=== PATIENT | female | born 1950 ===

== ENCOUNTER 2016-08-13 07:32 | Emergency (ER) | payer MEDICAID ==
[2016-08-13 07:33] VITALS: BMI 23.7
[2016-08-13 07:38] VITALS: BP 124/68; PULSE 67; RESP 18; TEMP 98.3; O2SAT 100
--- NOTE | 2016-08-13 08:06 | ED PDOC ---
HPI: General Adult Time Seen by Provider: 08/13/16 07:51 Chief Complaint (Nursing): Lower Extremity Problem/Injury Chief Complaint (Provider): left lower back pain History Per: Patient History/Exam Limitations: no limitations Additional Complaint(s): 65yo female comes to the ED complaining of left buttock pain radiating down left leg for 4 days, worse since last night. pain is intermittent, worse in the evenings. States she is taking Motrin 3x daily. Last motrin was taken 2100 last night. No hematuria, dysuria, nausea, vomit, fever, chills, chest pain. PMD: [facility] Past Medical History Reviewed: Historical Data, Nursing Documentation, Vital Signs Vital Signs: Last Vital Signs Temp 98.3 F 08/13/16 07:37 Pulse 67 08/13/16 07:37 Resp 18 08/13/16 07:37 BP 124/68 08/13/16 07:37 Pulse Ox 100 08/13/16 08:14 - Medical History PMH: Diabetes, HTN, Hypercholesterolemia, Hyperlipidemia Denies: Diverticulitis, Chronic Kidney Disease - Surgical History Surgical History: Appendectomy, Cholecystectomy, Tonsillectomy Other surgeries: tubal ligation - Family History Family History: States: Unknown Family Hx - Social History Drugs: Denies - Immunization History Hx Tetanus Toxoid Vaccination: No Hx Influenza Vaccination: No Hx Pneumococcal Vaccination: No - Home Medications Home Medications: Ambulatory Orders Medication Instructions Recorded Atorvastatin Calcium [Lipitor] 10 mg PO DIN 12/02/13 Glipizide [Glucotrol] 10 mg PO DAILY 12/02/13 MetFORMIN [glucoPHAGE] 1,000 mg PO BID 12/02/13 Quinapril HCl [Quinapril] 20 mg PO DAILY 11/20/15 SITagliptin [Januvia] 100 mg PO DAILY 11/20/15 Cyclobenzaprine [Cyclobenzaprine 10 mg PO TID #21 tab 08/13/16 HCl] Naproxen [Naprosyn] 500 mg PO BID PRN #20 tablet 08/13/16 - Allergies Allergies/Adverse Reactions: Allergies Allergy/AdvReac Type Severity Reaction Status Date / Time No Known Allergies Allergy Verified 08/13/16 07:55 Review of Systems ROS Statement: Except As Marked, All Systems Reviewed And Found Negative Constitutional: Negative for: Fever, Chills Cardiovascular: Negative for: Chest Pain Gastrointestinal: Negative for: Nausea, Vomiting, Abdominal Pain Genitourinary Female: Negative for: Dysuria, Hematuria, Vaginal Bleeding Musculoskeletal: Positive for: Back Pain, Leg Pain Physical Exam - Reviewed Nursing Documentation Reviewed: Yes Vital Signs Reviewed: Yes - Physical Exam Appears: Positive for: Well, Non-toxic, No Acute Distress Head Exam: Positive for: ATRAUMATIC, NORMAL INSPECTION, NORMOCEPHALIC Skin: Positive for: Warm, Dry Eye Exam: Positive for: EOMI, PERRL Respiratory: Negative for: Respiratory Distress Gastrointestinal/Abdominal: Positive for: Soft. Negative for: Tenderness Back: Positive for: Muscle Spasm. Negative for: L CVA Tenderness, R CVA Tenderness, Vertebral Tenderness, Other (negative straight leg raise) Extremity: Positive for: Normal ROM. Negative for: Tenderness, Deformity Neurologic/Psych: Positive for: Alert, Oriented - ECG O2 Sat by Pulse Oximetry: 100 (RA) Pulse Ox Interpretation: Normal Medical Decision Making Medical Decision Makin: patient is feeling better. will d/c on NSAID and Flexeril x-rays show degenerative changes. no obvious fracture. Disposition - Clinical Impression Clinical Impression: Muscle strain, DJD (degenerative joint disease) - Patient ED Disposition Is Patient to be Admitted: No Doctor Will See Patient In The: Office Counseled Patient/Family Regarding: Diagnosis, Need For Followup, Rx Given - Disposition Referrals: [facility] [Outside] [facility] [Outside] Disposition: Routine/Home Disposition Time: 10:52 Condition: IMPROVED Prescriptions: Cyclobenzaprine [Cyclobenzaprine HCl] 10 mg PO TID #21 tab Naproxen [Naprosyn] 500 mg PO BID PRN #20 tablet PRN Reason: Pain, Moderate (4-7) Instructions: Back Exercises (ED), Arthritis (ED) Print Language: NEPALI - POA Present On Arrival: None Additional Comments - Additional Comments Additional Comments: Scribe Attestation: Documented by Morgan Mehta acting as a scribe for Soo Zamudio MD. Provider Scribe Attestation: All medical record entries made by the Scribe were at my direction and personally dictated by me. I have reviewed the chart and agree that the record accurately reflects my personal performance of the history, physical exam, medical decision making, and the department course for this patient. I have also personally directed, reviewed, and agree with the discharge instructions and disposition.
--- NOTE | 2016-08-13 13:32 | RAD ---
Indication: Back pain Left hip radiographs Comparison: None available Findings: Scoliosis convex to the left of the included lower lumbar spine. Extensive degenerative changes of the lower lumbar spine. Joint space narrowing bilateral hip joints. No acute displaced fracture or dislocation identified. Sacroiliac joints appear intact. Soft tissues appear unremarkable. Right upper quadrant surgical clips. Moderate constipation. Impression: No acute displaced fracture or dislocation evident. If high clinical index of suspicion, suggest cross-sectional imaging for further evaluation. Otherwise, if symptoms persist or if there is continued clinical concern, x-ray follow-up in 7-10 days should be considered. Degenerative changes. Scoliosis of the included lower lumbar spine convex to the left. Moderate constipation. Cholecystectomy clips.
--- NOTE | 2016-08-13 13:40 | RAD ---
PROCEDURE: Radiographs of the Lumbar Spine. HISTORY: back pain COMPARISON: Lumbar spine radiographs performed 04/11/15 FINDINGS: Multilevel degenerative changes including extensive osteophyte formation and intervertebral disc space narrowing. Scoliosis with curvature of the lumbar spine convex to the left. No acute displaced fracture identified. Moderate constipation. IMPRESSION: Scoliosis. Extensive multilevel degenerative changes.
== END 2016-08-13 11:36 | disposition home or self-care (01) ==
LOC: H.ER 07:32
DX: M16.0 Bilateral primary osteoarthritis of hip (principal); M47.896 Other spondylosis, lumbar region; T14.8 Other injury of unspecified body region; X58.XXXA Exposure to other specified factors, initial encounter; Y92.9 Unspecified place or not applicable; I10 Essential (primary) hypertension; E11.9 Type 2 diabetes mellitus without complications

== ENCOUNTER 2017-03-31 09:42 | Emergency (ER) | payer MEDICAID ==
[2017-03-31 09:48] VITALS: BP 140/83; PULSE 65; RESP 20; TEMP 97.8; O2SAT 100; BMI 23.0
--- NOTE | 2017-03-31 10:17 | ED PDOC ---
HPI: Abdomen Time Seen by Provider: 03/31/17 10:04 Chief Complaint (Nursing): Abdominal Pain History Per: Patient History/Exam Limitations: no limitations Onset/Duration Of Symptoms: Days (3) Outside of [place] travel?: No Current Symptoms Are (Timing): Still Present Location Of Pain/Discomfort: RUQ Quality Of Discomfort: "Pain" Associated Symptoms: denies: Fever, Nausea, Vomiting, Diarrhea, Loss Of Appetite Exacerbating Factors: Movement Last Bowel Movement: Today Additional Complaint(s): 66 year old female with PMH of HTN, DM and Hyperlipidemia presents to ED with complaints of RUQ abdominal pain for 3 days. She states she thought the pain was muscular and went to see her orthopedic, whom she sees for back pain, and sent her to the ED. She states the pain is dull, non-radiating and worse with movement or on palpation. She has history of cholecystectomy. Denies any fever, nausea, vomiting, diarrhea, constipation, loss of appetite, weight loss, injury. Abnormal Vaginal Bleeding: No Past Medical History Reviewed: Historical Data, Nursing Documentation, Vital Signs Vital Signs: Last Vital Signs Temp 97.8 F 03/31/17 09:47 Pulse 65 03/31/17 09:47 Resp 20 03/31/17 09:47 BP 140/83 03/31/17 09:47 Pulse Ox 100 03/31/17 13:08 - Medical History PMH: Back Problems, Diabetes, HTN, Hypercholesterolemia, Hyperlipidemia - Surgical History Surgical History: Appendectomy, Cholecystectomy, Tonsillectomy Other surgeries: Tubal ligation - Family History Family History: States: Unknown Family Hx - Living Arrangements Living Arrangements: With Family - Social History Alcohol: None Drugs: Denies - Immunization History Hx Tetanus Toxoid Vaccination: No Hx Influenza Vaccination: No Hx Pneumococcal Vaccination: No - Home Medications Home Medications: Ambulatory Orders Medication Instructions Recorded Atorvastatin Calcium [Lipitor] 10 mg PO DIN 12/02/13 Glipizide [Glucotrol] 10 mg PO DAILY 12/02/13 MetFORMIN [glucoPHAGE] 1,000 mg PO BID 12/02/13 Quinapril HCl [Quinapril] 20 mg PO DAILY 11/20/15 SITagliptin [Januvia] 100 mg PO DAILY 11/20/15 Cyclobenzaprine [Cyclobenzaprine 10 mg PO TID #21 tab 08/13/16 HCl] Naproxen [Naprosyn] 500 mg PO BID PRN #20 tablet 08/13/16 Diazepam [Valium] 2 mg PO TID #21 tab 08/15/16 Ibuprofen [Motrin] 1 tab PO TID PRN #30 tab 08/15/16 traMADol/Acetaminophen [Ultracet 1 tab PO Q8 PRN #15 tab 08/15/16 325 MG-37.5 MG] - Allergies Allergies/Adverse Reactions: Allergies Allergy/AdvReac Type Severity Reaction Status Date / Time No Known Allergies Allergy Verified 08/15/16 08:29 Review of Systems Constitutional: Negative for: Fever, Malaise Eyes: Negative for: Vision Change, Redness ENT: Negative for: Ear Pain, Throat Pain Cardiovascular: Negative for: Chest Pain, Palpitations Respiratory: Negative for: Cough, Shortness of Breath Gastrointestinal: Positive for: Abdominal Pain (RUQ). Negative for: Nausea, Vomiting, Diarrhea, Constipation Genitourinary Female: Positive for: Frequency Musculoskeletal: Negative for: Back Pain Skin: Negative for: Rash Neurological: Negative for: Headache, Dizziness Physical Exam - Reviewed Nursing Documentation Reviewed: Yes Vital Signs Reviewed: Yes - Physical Exam Appears: Positive for: Non-toxic, No Acute Distress Head Exam: Positive for: ATRAUMATIC, NORMAL INSPECTION Skin: Positive for: Warm, Dry. Negative for: Rash Eye Exam: Positive for: Normal appearance, EOMI Neck: Positive for: Painless ROM Cardiovascular/Chest: Positive for: Regular Rate, Rhythm, Other (Tenderness to right inferior rib and RUQ). Negative for: Murmur Respiratory: Positive for: Normal Breath Sounds. Negative for: Rales, Rhonchi, Wheezing, Respiratory Distress Gastrointestinal/Abdominal: Positive for: Bowel Sounds (active), Soft, Tenderness (RUQ). Negative for: Mass, Distended, Guarding, Hernia Back: Positive for: Normal Inspection. Negative for: L CVA Tenderness, R CVA Tenderness Extremity: Positive for: Normal ROM. Negative for: Tenderness, Pedal Edema, Deformity, Swelling Neurologic/Psych: Positive for: Alert, Oriented - Laboratory Results Result Diagrams: 03/31/17 11:01 03/31/17 11:01 - ECG O2 Sat by Pulse Oximetry: 100 Medical Decision Making Medical Decision Making: Impression: RUQ abd pain Plan: * Labs * Pepcid * Toradol Progress: 12:00 All labs reviewed with no acute findings [address] IMPRESSION:No acute findings related to/accounting for the clinical presentation. No significant interval change compared to the prior examination(s ). Additional benign and/or incidental findings described above. Re-Eval: 1310 Patient resting comfortably in bed in no acute distress. She reports pain has improved. She has no fever and stable vital signs. Discussed results with patient, and copy of report was provided. Patient feels comfortable going home and will be discharged. Patient given follow up instructions. Instructed to return to ER if symptoms worsen or new symptoms arise. Disposition - Clinical Impression Clinical Impression: RUQ abdominal pain, Fatty infiltration of liver - Patient ED Disposition Is Patient to be Admitted: No Counseled Patient/Family Regarding: Studies Performed, Diagnosis, Need For Followup - Disposition Referrals: [facility] [Outside] [facility] [Outside] Disposition: Routine/Home Disposition Time: 13:12 Condition: IMPROVED Additional Instructions: Kandi anlisis de laboratorio y Ct del abdomen fueron normales. Hgado graso en CT. Por favor, manuel un seguimiento con vallejo mdico primario o clnica para recibir ms atencin. Rulo cualquier analgsico segn sea necesario. Regrese al departamento de emergencia en cualquier momento si los sntomas persisten o empeoran. Instructions: Non-Alcoholic Fatty Liver Disease (ED) Forms: [facility] (Kazakh) Print Language: FRENCH
[2017-03-31] MEDS ORDERED: Sodium Chloride 0.9% 500 ML IV ONE (10:21)
[2017-03-31 11:14] LABS: BASO % 0.5 % (0.0-2.0); EOS # 0.1 K/uL (0.0-0.7); EOS % 2.9 % (0.0-4.0); HEMATOCRIT 38.2 % (34.0-47.0); LYMPH # 1.5 K/uL (1.0-4.3); LYMPH % 29.7 % (20.0-40.0); MEAN CELL VOLUME 93.4 fl (81.0-99.0); MEAN CORPUSCULAR HEMOGLOBIN 31.7 pg (27.0-31.0); MEAN CORPUSCULAR HGB CONC 33.9 g/dL (33.0-37.0); MEAN PLATELET VOLUME 9.3 fl (7.2-11.7); MONO # 0.3 K/uL (0.0-0.8); MONO % 6.5 % (0.0-10.0); NEUT % 60.4 % (50.0-75.0); NRBC % 0.1 % (0.0-0.0); RED CELL DISTRIBUTION WIDTH 13.4 % (11.5-14.5)
[2017-03-31 11:23] LABS: ALKALINE PHOSPHATASE 80 U/L (38-126); ALT/SGPT 37 U/L (9-52); AMYLASE 77 U/L (30-110); AST/SGOT 22 U/L (14-36); BILIRUBIN,TOTAL 0.7 mg/dl (0.2-1.3); BLOOD UREA NITROGEN 16 mg/dl (7-17); CALCIUM 9.3 mg/dL (8.4-10.2); CARBON DIOXIDE 29 mmol/L (22-30); CHLORIDE 103 mmol/L (98-107); CHOLESTEROL 141 mg/dL (0-199); GFR AFRICAN-AMERICAN > 60; GLUCOSE,RANDOM 174 mg/dL (65-105); LIPASE 100 U/L (23-300); POTASSIUM 4.2 MMOL/L (3.6-5.0); SODIUM 137 mmol/l (132-148); TOTAL PROTEIN 6.2 G/DL (6.3-8.2)
[2017-03-31] MEDS ORDERED: Sodium Chloride 0.9% 0 ML IV ONE (11:26)
[2017-03-31] MEDS ORDERED: Iohexol 300 100 ML IJ ONE (11:26)
[2017-03-31 11:27] LABS: ALB/GLOB RATIO 1.5 (1.0-2.1)
[2017-03-31 11:28] LABS: RBC URINE 3 /hpf (0-3); URINE BILIRUBIN NEGATIVE (NEGATIVE); URINE BLOOD NEGATIVE (NEGATIVE); URINE COLOR YELLOW (YELLOW); URINE GLUCOSE (UA) 50 mg/dL (Normal); URINE KETONE TRACE mg/dL (NEGATIVE); URINE LEUKOCYTE ESTERASE NEG Leu/uL (Negative); URINE PROTEIN NEGATIVE (NEGATIVE); URINE UROBILINOGEN 0.2-1.0 mg/dL (0.2-1.0); WBC URINE 1 /hpf (0-5)
[2017-03-31] MEDS ORDERED: Sodium Chloride 0.9% 50 ML IV ONE (11:34)
[2017-03-31] MEDS ORDERED: Iodixanol 320 MG/ML 100 ML BOTTLE IV ONE (11:34)
--- NOTE | 2017-03-31 12:51 | CT ---
PROCEDURE: CT Abdomen and Pelvis with contrast HISTORY: Right upper quadrant pain. Right rib Pain. No history of recent/ related trauma provided COMPARISON: 09/21/2015 TECHNIQUE: Contrast dose: 95 cc Omnipaque 300 Radiation dose: Total exam DLP = 615.92 mGy-cm. This CT exam was performed using one or more of the following dose reduction techniques: Automated exposure control, adjustment of the mA and/or kV according to patient size, and/or use of iterative reconstruction technique. FINDINGS: LOWER THORAX: Unremarkable. LIVER: Fatty infiltration of the liver. Incidental finding(s): Flash hemangioma 2 cm left hepatic lobe. No space-occupying masses. GALLBLADDER AND BILE DUCTS: Status post cholecystectomy. No abnormality is seen in the gallbladder fossa. PANCREAS: Unremarkable. No gross lesion or ductal dilatation. SPLEEN: Unremarkable. ADRENALS: Unremarkable. No mass. KIDNEYS AND URETERS: Unremarkable. No hydronephrosis. No solid mass. VASCULATURE: Unremarkable. No aortic aneurysm. BOWEL: Constipation without fecal impaction or obstruction. Duodenal diverticulum/duplication cyst again identified. APPENDIX: No abnormalities to suggest acute appendicitis. No right lower quadrant inflammatory processes identified. PERITONEUM: Unremarkable. No free fluid. No free air. LYMPH NODES: Unremarkable. No enlarged lymph nodes. BLADDER: Unremarkable. REPRODUCTIVE: Unremarkable. BONES: Scoliosis, secondary degenerative change at multiple levels. OTHER FINDINGS: Ventral fat containing hernia. IMPRESSION: No acute findings related to/accounting for the clinical presentation. No significant interval change compared to the prior examination(s). Additional benign and/or incidental findings described above.
== END 2017-03-31 13:39 | disposition home or self-care (01) ==
LOC: H.ER 09:42
DX: R10.11 Right upper quadrant pain (principal); K76.0 Fatty (change of) liver, not elsewhere classified; E11.9 Type 2 diabetes mellitus without complications; E78.00 Pure hypercholesterolemia, unspecified; I10 Essential (primary) hypertension; Z79.84 Long term (current) use of oral hypoglycemic drugs
CPT/HCPCS: 74177; 80053; 80061; 81003; 82150; 83690; 85025; 96361; 96374; 96375; 99283; J1885; J7040; Q9967